=== PATIENT | female | born 1970 | race Caucasian/White ===

== ENCOUNTER 2025-04-26 18:11 | Inpatient (IN) | payer BC, OTHER ==
[~2025-04-26] VITALS: Ht 162.6 cm; Wt 84.1 kg
[~2025-04-26 18:11] MED LIST: DIAZ-351 PO
--- NOTE | 2025-04-26 18:24 | ELECTROCARDIOGRAPH REPORT ---
[facility] Test Date: 2025-04-26 Test Time: 18:16:04 Pat Name: MANUEL KONG Department: EMERGENCY ROOM Patient ID: [id number] Room: Gender: F Apartment Leasing Agent: DERIK : 1970 Requested By: MONTY KEATING Order Number: [id number] Reading MD: Dr. Monty Keating Measurements Intervals [place] Rate: 79 P: 70 CO: 178 QRS: 26 QRSD: 90 T: 58 QT: 438 QTc: 503 Interpretive Statements Sinus rhythm Borderline prolonged QT interval Electronically Signed On 04-26-2025 18:36:[address] Monty Keating Please click the below link to view image of tracing.
--- NOTE | 2025-04-26 18:49 | RADIOLOGY REPORT ---
CHEST RADIOGRAPH Indication: CP Technique: Single frontal view of the chest was obtained COMPARISON: None FINDINGS: Lines and Tubes: None Lungs: Clear Pleura: No effusion. No pneumothorax. Cardiomediastinal contours: Unremarkable Bones: Unremarkable IMPRESSION: 1. No acute disease.
[2025-04-26 18:53] LABS: MEAN PLATELET VOLUME 8.9 FL (7.4-10.4); RED CELL DISTRIBUTION WIDTH 13.9 % (11.5-14.5)
[2025-04-26 19:10] LABS: CREATININE 0.67 MG/DL (0.40-0.90); TOTAL CARBON DIOXIDE 30.6 MMOL/L (24-32); eCRCL 82 ML/MIN; eGFR > 90 ML/MIN
[2025-04-26 19:16] LABS: ETHANOL < 10 MG/DL (<10); PRO BRAIN NATRIURETIC PEPTIDE 176 PG/ML (0-125)
--- NOTE | 2025-04-26 21:05 | Physician Documentation ---
History of Present Illness ~ Chief Complaint: Chest Pain Stated Complaint: CP Time Seen by MD: 20:26 OK to notify your PCP?: Yes Primary Medical Doctor: SCALES Source: patient, RN/MD, RN notes reviewed, old records Exam Limitations: no limitations HPI This pleasant female has a diabetic. She has been having exertional dyspnea now for four months. She has been losing weight but she has been trying to lose weight. [place] recent [place] But for four months she has been having some palpitations some shortness of breath some generalized fatigue but in the last three weeks it has gotten dramatically worsened. She has a cough she feels dizzy at times she has pains substernal but they seemed to be short lasting happening for sec but does trigger symptoms she has been having increasing palpitations increasing pains profound dyspnea on exertion going to the bathroom now she becomes winded. She just started seeing Dr. Dale mostly she has a three day monitor, echocardiogram, EKG which was said to be abnormal a bundle branch block of sorts, a stress test Lexiscan and was then told based on that she is going to need additional studies including another ultrasound. I asked if hi was this study it did not sound familiar. She denies any leg swelling. Her glucose levels have been well controlled. She is now here for evaluation and care. Medication Reconciliation Allergies: Coded Allergies: No Known Allergies (Unverified , 04/26/25) Scheduled PRN Diazepam (Diazepam), 5-10 MG PO Q6H PRN PRN for pain Past Medical History Past Medical History: Angina, Kidney Stones Past Surgical History: noncontributory Smoking Status: Current every day smoker Alcohol Use: None Drug Use: none Review of Systems All Other Systems at this time: Reviewed and Negative Physical Exam Vital Signs: RN Vital Signs have been reviewed: Yes, Temperature: 97.6, Source: Temporal, Heart Rate: 77, Respiratory Rate: 16, BP: 133/95, Pulse Oximetry: 97, Weight: 84.100 Oxygen Flow Rate: 0 Physical Exam General: The patient is well developed, well nourished, nontoxic appearing and is in no acute distress. Skin: Bright, warm and dry with no rashes. HEENT: Head was normocephalic and atraumatic. Eyes - pupils equal, round, reactive to light and accommodation. Extraocular movements were intact. Conjunctivae were nonicteric. The mouth and oropharynx were clear with moist mucous membranes. Neck: Supple and nontender. There was no jugular venous distention, lymphadenopathy, thyromegaly or masses. Chest: Clear to auscultation bilaterally without wheezes, rales or rhonchi. No accessory muscle use. No dullness to percussion. Heart: Rate regular and rhythmic. S1, S2. No murmurs. Palpation of the chest wall was normal. No rubs or thrills. Abdomen: Soft, nontender and nondistended. Positive bowel sounds. No guarding or rebound. No hepatosplenomegaly or palpable masses. Extremities: No cyanosis, clubbing or edema. The patient moves all extremities. Pulses were equal and symmetric. Neurologic: Motor sensory grossly intact Psychologic: The patient was oriented to person, place and time. The patient demonstrated appropriate judgement and insight. Progress Progress Note [id number] discussed the case with the hospitalist who kindly agreed to admit the patient for further workup and care possible repeat echocardiogram Results/Orders Reviewed/noted all lab results: Yes Results/Orders Orders - JONATAN KEATING MD Chest,Single View (04/26/25 18:22) Monitor (04/26/25 18:22) Saline Lock (04/26/25 18:22) Oxygen (04/26/25 18:22) Electrocardiogram (04/26/25 18:22) Drug Screen, Urine (04/26/25 18:36) Cta Chest Pe (04/26/25 21:40) Page Hospitalist (04/26/25 22:43) Fill Out Med Reconciliation (04/26/25 22:43) Completed Orders - JONATAN KEATING MD Chest,Single View (04/26/25 18:22) Cbc/Diff (04/26/25 18:22) BMP (04/26/25 18:22) PBNP (04/26/25 18:22) Electrocardiogram (04/26/25 18:22) Hs Troponin I W Calculations (04/26/25 18:22) Hs Troponin I W Calculations (04/26/25 20:22) Hs Troponin I W Calculations (04/26/25 21:22) CMP (04/26/25 18:22) Ethanol (04/26/25 18:36) MG (04/26/25 18:36) D-Dimer (04/26/25 21:21) Pt Inr (04/26/25 21:21) PTT (04/26/25 21:21) Aspirin 81mg Chew Tablet (Aspirin 81mg C (04/26/25 21:25) Cta Chest Pe (04/26/25 21:40) Iohexol 350mg/Ml 100ml (Omnipaque 350mg/ (04/26/25 21:25) Medications Received in ER Medications (Trade) Dose Ordered Sig/Dinah Route PRN Reason Start Time Stop Time Status Last Admin Dose Admin (aspirin 81MG chew tablet) 324 mg ONCE ONCE PO 04/26/25 21:25 04/26/25 21:26 DC 04/26/25 22:09 324 MG Vital Signs 04/26/25 04/26/25 04/26/25 04/26/25 18:18 19:17 19:20 21:39 Temp 97.6 Pulse 76 77 70 Resp 16 16 16 16 B/P (MAP) 151/80 133/95 (108) 130/86 (101) Pulse Ox 98 97 98 O2 Flow Rate 0 0 Laboratory Tests Test 04/26/25 18:38 04/26/25 20:21 04/26/25 21:24 White Blood Count 6.3 Red Blood Count 4.45 Hemoglobin 13.4 Hematocrit 38.5 Mean Corpuscular Volume 86.4 Mean Corpuscular Hemoglobin 30.0 Mean Corpuscular Hemoglobin Concent 34.7 Red Cell Distribution Width 13.9 Platelet Count 185 Mean Platelet Volume 8.9 Neutrophils (%) (Auto) 59.2 Lymphocytes (%) (Auto) 31.5 Monocytes (%) (Auto) 7.8 Eosinophils (%) (Auto) 0.8 Basophils (%) (Auto) 0.7 Neutrophils # (Auto) 3.7 Lymphocytes # (Auto) 2.0 Monocytes # (Auto) 0.5 Eosinophils # (Auto) 0.1 Basophils # (Auto) 0.0 CBC Comment Sodium Level 139 Potassium Level 3.6 Chloride Level 106 Carbon Dioxide Level 30.6 Anion Gap 2 L Blood Urea Nitrogen 12 Creatinine 0.67 Estimated GFR/1.73 m2 > 90 BUN/Creatinine Ratio 17.9 Glucose Level 154 H Calcium Level 8.1 L Magnesium Level 2.2 Total Bilirubin 0.4 Aspartate Amino Transf (AST/SGOT) 58 H Alanine Aminotransferase (ALT/SGPT) 86 H Alkaline Phosphatase 56 Troponin I High Sensitivity 4 4 5 Pro-B-Type Natriuretic Peptide 176 H Total Protein 6.9 Albumin 3.6 Globulin 3.3 Albumin/Globulin Ratio 1.1 Chemistry Comments Ethyl Alcohol Level < 10 Troponin I High Sens Percent Delta 0 25 Troponin I Hi Sens Absolute Change 0 1 Prothrombin Time 10.7 INR International Normalized Ratio 1.0 Activated Partial Thromboplast Time 30 D-Dimer 0.37 D-Dimer Comment Coagulation Comments Re-Evaluation Re-Evaluation : Re-Evaluation: Unchanged Progress Patient was seen and examined. Patient is given reassurance. Patient's history is quite concerning for cardiac etiology possible heart failure as well. The patient has been having vague cardiac symptoms dyspnea on exertion pulmonary embolism is quite concerning as well as cardiac etiologies. Patient has had a partial workup with stress test echocardiograms Holter monitors but was told she had some abnormal findings requiring additional studies. She is unaware the findings and unable to reach her boatswains mate on the holiday weekend. Patient was sent to the CAT scan to rule out pulmonary embolism otherwise unstable angina is the other possibility for her diagnosis. Anxiety palpitations arrhythmias are all possibilities. Initial laboratory work shows a normal CBC without anemia or leukocytosis making infectious etiologies highly unlikely. Chemistry is also within normal limits calcium is borderline low at 8.1. Negative troponins proBNP one hundred seventy-six. Tox screen negative D-dimer pending. EKG was obtained did not appreciate any heart strain. Continuous bus monitor interpretation shows normal sinus rhythm heart rate 70s, no ectopy, normal, my interpretation. Pulse oximetry monitor interpretation shows normal oxygenation 97% room air, normal, my interpretation. EKG/XRAY/CT/US/VASC/MRI EKG : Intepreting Monitor?: Yes Additional Comment [facility] Test Date: 2025-04-26 Test Time: 18:16:04 Pat Name: MANUEL KONG Department: EMERGENCY ROOM Patient ID: [id number] Room: Gender: F Curatorial Assistant: DERIK : 1970 Requested By: JONATAN KEATING Order Number: [id number] Reading MD: Dr. Jonatan Keating Measurements Intervals [place] Rate: 79 P: 70 MD: 178 QRS: 26 QRSD: 90 T: 58 QT: 438 QTc: 503 Interpretive Statements Sinus rhythm Borderline prolonged QT interval Electronically Signed On 04-26-2025 18:36:[address] Jonatan Keating Please click the below link to view image of tracing. Chest X-Ray : Interpreted By: self Views: 1 VIEW Additional Comments CHEST RADIOGRAPH Indication: CP Technique: Single frontal view of the chest was obtained COMPARISON: None FINDINGS: Lines and Tubes: None Lungs: Clear Pleura: No effusion. No pneumothorax. Cardiomediastinal contours: Unremarkable Bones: Unremarkable IMPRESSION: 1. No acute disease. Electronically Signed by:PHILLIP BARAKAT MD Heart Score: Heart Score Response (Comments) Value History Moderate Suspicious 1 EKG Repolarization Disturb 1 Age 45-64 1 Risk Factors 1 or 2 risk factors 1 Troponin Normal limit 0 Total 4 Medical Decision Making Additional information obtaine: old records Findings Patient has concerns are palpitations, pulmonary embolism, unstable angina, Heart Score: 4 Differential Dx:Considerations: Include: angina, aortic dissection, chest wall pain, cholelithiasis, CHF, costochondritis, esophageal reflux/spasm, gastritis, herpes zoster, myocardial infarction, pericarditis, pleuritis, pancreatitis, pneumonia, pneumothorax, pulmonary embolus, other Departure Disposition: 09 ADMITTED INPATIENT Admission Level of Care: PCU with Tele Impression: Primary Impression: Dyspnea on exertion Additional Impressions: Chest pain at rest Palpitations Unstable angina Condition: Guarded Referrals: NO PRIMARY CARE PROVIDER (PCP) Education Educated: Patient, Family Educated regarding: diagnosis, treatment, need for follow up Signature Scribe Signature: x Attestation: The note accurately reflects work and decisions made by me.Jonatan Keating MD 04/26/25 21:06 JONATAN KEATING MD Apr 26, 2025 21:05
[2025-04-26 21:43] LABS: APTT 30 SECONDS (22-32); INR 1.0 INR
--- NOTE | 2025-04-26 22:03 | RADIOLOGY REPORT ---
COMPUTERIZED TOMOGRAPHIC ANGIOGRAPHY OF THE CHEST WITH INTRAVENOUS CONTRAST REASON FOR EXAM: Chest pain COMPARISON: DI CHEST,SINGLE VIEW on DOS: 04/26/25 TECHNIQUE: The exam was performed on a multidetector spiral scanner. Spiral images were acquired from the thoracic inlet through the adrenal glands, during the bolus intravenous administration of contrast. Multiplanar maximum intensity projection (MIP) images were provided. Radiation optimization: All CT scans at this facility use at least one of these dose optimization techniques: Automated exposure control mA and/or kV adjustment per patient size (includes targeted exams where dose is matched to clinical indication) or iterative reconstruction. CONTRAST ADMINISTERED: 100 mL omnipaque 350 intravenously. RADIATION DOSE: CTDI: 23 mGy DLP: 788 mGy-cm FINDINGS: There is minimal dependent atelectasis in bilateral lower lobes. There is no bronchiectasis or honeycombing. There is no significant pulmonary nodule or mass. There is no pleural effusion. There is no pneumothorax. The heart is at the upper limits of normal for size. There is no pericardial effusion. There is no pulmonary arterial filling defect as far as the subsegmental level to suggest pulmonary embolism. There is no thoracic aortic aneurysm. No pathologic lymphadenopathy is identified by size criteria. The visualized thyroid gland is unremarkable. No acute osseous abnormality is identified. IMPRESSION: No evidence of pulmonary embolism as far as the subsegmental level. No thoracic aortic aneurysm. No significant cardiopulmonary abnormality.
[2025-04-26] MEDS ORDERED: magnesium sulf-water 2g/50mL 50 ML IV PRN (23:45)
[2025-04-26] MEDS ORDERED: magnesium hydroxide 30ml (MOM) UD suspension PO PRN (23:45)
[2025-04-26] MEDS ORDERED: ondansetron/PF 4mg/2ml inj IV PRN (23:45)
[2025-04-26] MEDS ORDERED: magnesium Cl slow-release 64mg tablet PO PRN (23:45)
[2025-04-26] MEDS ORDERED: potassium Cl 20 mEq SR tablet PO PRN (23:45)
[2025-04-26] MEDS ORDERED: magnesium sulf-water 4G/100mL 100 ML IV PRN (23:45)
[2025-04-26] MEDS ORDERED: potassium Cl 40MEQ/1/2NS 520ml 520 ML IV PRN (23:45)
[2025-04-26] MEDS ORDERED: mag hydrox/Alum hydrox/simeth 30ml oral suspension PO PRN (23:45)
[2025-04-26] MEDS ORDERED: metoclopramide 5 mg/ml inj IV PRN (23:45)
[2025-04-27] VITALS (9 sets, daily range): BP systolic 132–154; BP diastolic 79–91; PULSE 66–83; RESP 10–21; TEMP 97.1–98.2; O2SAT 96–99
[2025-04-27] MEDS: PERFLUTREN PROTEIN-A MICROSPHR (Optison) 0.22 MG/ML 3ML VIAL IV ONE (00:05)
--- NOTE | 2025-04-27 00:11 | HISTORY AND PHYSICAL-Residence ---
History & Physical Providers to CC Resident Creating Document: MINI WATT, JESS ~ History of Present Illness Primary Medical Doctor: SCALES Reason for Admit\Complaint: acute on chronic SOB w/ chest discomfort, to rule out ACS History of Present Illness A 54 years old female with the PMH of PVC, T1DM, Hypertension, on HRT estrogen patch, RA and OA with multiple osteopathic surgeries, s/p , CISCO+BSO, kidney stones with family history of CAD [place] and CVA, past history of substance use (Tobacco, EtOH) presented to the ER with the concern for her progressive SOB and chest discomfort over 3 weeks. Pt's materials clerk is Dr Pendleton and PCP from [place]. She started noticing the intermittent abnormal skipping heart beat over her chest feeling along with SOB/MACEDO, and coughing since last 4 months which she attributed to her PVC uncontrolled for which she started seeing Dr Pendleton to control with meds. She experienced episodic similar symptoms back again in between for which she underwent the [place] Evelia scan, Echocardiogram, and Holter monitoring at [address] Pendleton's office, which results were not informed to her yet. She endorsed that her worsening similar symptoms reappeared 3 weeks back after those cardiology workup with progressive central chest pressure which was tender to touch, sharp and pin point feeling, and radiated to her inner left arm and back, associated with the nausea occasionally and SOB and MACEDO, lethargy without having any coughing this time made her concern for heart attack and come to the ER today. She denied for any preceding coryzal symptoms, hx of fall and injury/ trauma to the chest, any recent strenous exercises, and travel long distance hx. She has pretty active lifestyle and never diagnosed with VTE and PE, Cancer and its treatment before. She stated that her BP was controlled around 130s/80 mmHg with meds. She is currently on the HRT estrogen alone patch to prevent her post menopausal symptoms. She used to smoke some cigarettes in her 20s. Moderately consuming the small amount of EtOH once in a blue carrizales. Denied for any illicit drugs use including Coccaine, meth, marijuana etc.. Allergies: Coded Allergies: No Known Allergies (Unverified , 04/26/25) Home Medications Home Medications Active Diazepam 5 Mg Tablet 5-10 Mg PO Q6H PRN PRN Past Medical History Past Medical History PVC, T1DM, Hypertension, on HRT estrogen patch, RA and OA, kidney stones with family history of CAD [place] and CVA, past history of substance use (Tobacco, EtOH) Her father and grandmom from [place] at the age of 70s, and other family members had CVA. Past Surgical History Surgical History Comment s/p , CISCO+BSO Past Social History Social History Comment She used to smoke some cigarettes in her 20s. Moderately consuming the small amount of EtOH once in a blue carrizales. Denied for any illicit drugs use including Coccaine, meth, marijuana etc. she is currently living with her . Smoking: Non-Smoker Alcohol Use: None Drug Use: None ROS All Other Systems: Reviewed and Negative ROS Constitutional: No fever, chills, dizziness, weakness, weight gain or loss Eyes: No pain, erythema, discharge, blurring of vision ENT: No sore throat, epistaxis, tinnitus Cardiovascular: No syncope, lower extremity edema, paroxysmal nocturnal dyspnea Respiratory: No cough, hemoptysis Gastrointestinal: Normal appetite. No nausea, vomiting, diarrhea, constipation, hematemesis, abdominal pain, bloating, melena or fresh blood Genitourinary: No frequency, urgency, nocturia, hematuria or dysuria Musculoskeletal: No arthralgias or myalgias Integumentary: No change in skin, hair, nails. No swelling, bruising, abrasions Neurologic: No headache, neck pain, numbness or tingling of the extremities, weakness Psychiatric: No delusions, depression, loss of interest in normal activity or change in sleep pattern, hallucinations, suicidal ideations Endocrine: No fatigue, weakness, polydipsia, polyuria, change in appetite, heat or cold intolerance, sweating, dry skin Hematological: No bleeding, petechiae, bruising Allergies: No asthma or urticaria Exam Vitals: Vital Signs Date Time Temp Pulse Resp B/P (MAP) Pulse Ox O2 Delivery O2 Flow Rate FiO2 04/26/25 21:39 70 16 130/86 (101) 98 0 04/26/25 18:18 97.6 General: General: Well alert, well oriented, not confused, not agitated, not in acute distress, well cooperated during the physical. HEENT: HEENT: Conjunctive are pink, sclerae clear, no icterus, pupil is equal in both sides, reactive to light, no ear discharge, no pharyngeal erythema or an edema, mouth and lips are slightly dry. Neck: Neck: Supple, no JVD, no lymphadenopathy and thyromegaly. Chest: Lungs:Equal air entry on both lungs, no additional sounds Cardiovascular: Heart: S1-S2 regular sinus rhythm and, regular rate, no gallops, no rubs, no murmurs Chest pain: slight tenderness over the central chest on compression. Abdomen: Abdomen: No visible peristalsis, Bowel sounds present on auscultation, soft, nontender, no guarding, no rigidity Extremities: Extremities: No obvious deformities, no pitting edema bilaterally, capillary refill intact, able to wiggle toes both sides, peripheral pulsations are intact on both sides Central Nervous System: CARD RUNNER: No focal neurological deficits, no motor and sensory weakness in all 4 extremities, could move all 4 extremities Musculoskeletal: Musculoskeletal: No joint swelling, deformities, inflammations, and no scoliosis and back tenderness Skin: Skin: No active skin lesions and rashes Diagnostic Data Last Recorded Lab Results: 04/27/25 0306 04/27/25 0306 Diagnostic Data: Laboratory Tests Test 04/26/25 21:24 Prothrombin Time 10.7 SECONDS (9.0-12.0) INR International Normalized Ratio 1.0 INR Activated Partial Thromboplast Time 30 SECONDS (22-32) D-Dimer 0.37 MG/L FEU (0-0.50) D-Dimer Comment Coagulation Comments Counseling Services Smoking & Tobacco Cessation: 3-10 Minutes Advance Care Planning Advanced Care plannin - 30 Minutes Additional Plan A 54 years old female with the PMH of PVC, T1DM, Hypertension, on HRT estrogen patch, RA and OA with multiple osteopathic surgeries, s/p , CISCO+BSO, kidney stones with family history of CAD [place] and CVA, past history of substance use (Tobacco, EtOH) presented to the ER with the concern for her progressive SOB and chest discomfort over 3 weeks. # Non-specific Chest pain, to exclude ACS # Excluded out Acute PE w/ Negative D Dimer and CTA chest # Hx of PVC -Given history of PVC, pending cardiac workup at the Dr Pendleton's office, with presenting symptoms of SOB/ MACEDO, possible non-cardiac chest pain with background family hx for CVA and [place], currently on HRT and T1DM status, pt was admitted to the PCU for continuous library monitor and further investigation including pending workup results from Dr Pendleton's office. -Based on pt's CP which is less likely from cardiac origin, Musculoskeletal origin would be highly possible with the slightly tenderness on chest compression on exam Vs Possible RA related Pericarditis causing CP although no shorten TN and delta sloughing wave of QRS with widespread ST elevation in concavity was seen on her EKG except for the slightly prolonged QT interval. Serial Trops were negative 4-4-5. -No hx of chronic GI blood loss, and no labs showed Anemia at that moment. She is eating well balanced nutritions. -She was treated with methotrexate for her RA for total three years, which was stopped eight months ago. Chest imaging dose not show any pulmonary parenchyma pathology. -CTA chest IMPRESSION: No evidence of pulmonary embolism as far as the subsegmental level. No thoracic aortic aneurysm. No significant cardiopulmonary abnormality. -CXR showed No evidence of pulmonary embolism as far as the subsegmental level. No thoracic aortic aneurysm. No significant cardiopulmonary abnormality. -elevated proBNP with no acute heart failure exacerbation and no kidney issue Plan: -Following up with Dr Pendleton's office Echo, [place] Evelia scan and Holter monitoring reading -to inform Dr Pendleton -SL NGL prn -PO Protonix 40 mg Daily -continue telemetry monitoring -will consider for NSAIDs after ruled out ACS -daily CBC monitoring for anemia, CMP for electrolytes imbalances -Pending drug screen -reassure the pt and discuss the details plan, control her anxiety -Pending Med Rec -Follow up with PCP for detail discussion with HRT and VTE and Cardiovascular risk -Pending Lipid panel to calculate ASCVD risk in the presence of T1DM # T1DM # Hypertension -monitor blood sugar, HGB A1c 6.9 -monitor insulin pump functions -control blood pressure -med rec pending # Past Hx of substance use (Tobacco and EtOH) -strongly encouraged to quit or cut down, linked the risks and consequences from the substance use. # RA # Multiple osteopathtic issues -follow up with hooker laster and orthopedic in outpatient setting -continue prescribed medications to control RA, med rec pending -ESR 14 # serum hypocalcemia -serum calcium show 8.1, corrected calcium show 8.4 which is low -ordered ionized calcium level -no active clinical symptoms at the moment CODE STATUS: Full code DVT prophylaxis: SC heparin Analgesia/sedation: IV morphine as needed Lines/tubes: PIV GI prophylaxis: Protonix Nutrition: Heart healthy Prognosis: Guarded Disposition: Continue medical management, follow up with the Dr. Pendleton's office, Dr. Pendleton's consultation, PT eval and DC plan. Resident MD attestation: Patient was seen, examined and discussed with attending MD, Dr. Milagro WATT MD Internal Medicine Resident, PGY3 [facility] Date of Service: Apr 26, 2025 Billing Provider: LONNIE CARABALLO MD Addendum Attestation I agree with the residents assessment and plan as below: 54 year old female admitted with SOB and chest pain Plan: cardiology consult prn morphine for pain trend troponin PT and OT eval continue insulin pump restart home BP meds CCT 51 min using HIPPA compliant A/V technology MINI WATT, RES Apr 27, 2025 00:11 LONNIE CARABALLO MD Apr 27, 2025 04:54
[2025-04-27] MEDS: pantoprazole 40mg Tablet.DR PO SCH (02:01)
[2025-04-27 04:00] LABS: MEAN PLATELET VOLUME 9.1 FL (7.4-10.4); RED CELL DISTRIBUTION WIDTH 14.1 % (11.5-14.5)
[2025-04-27 04:16] LABS: CHOL/HDL RATIO 2.3 (0.00-4.99); CREATININE 0.60 MG/DL (0.40-0.90); LDL CHOLESTEROL 32 MG/DL (50-100); TOTAL CARBON DIOXIDE 31.1 MMOL/L (24-32); eCRCL 91 ML/MIN; eGFR > 90 ML/MIN
[2025-04-27 04:53] LABS: URINE AMPHETAMINE SCREEN NEGATIVE (Neg); URINE BARBITUATE SCREEN NEGATIVE (Neg); URINE BENZODIAZEPINES SCREEN NEGATIVE (Neg); URINE CANNABINOID SCREEN NEGATIVE (Neg); URINE COCAINE SCREEN NEGATIVE (Neg); URINE METHADONE SCREEN NEGATIVE (Neg); URINE OPIATE SCREEN NEGATIVE (Neg); URINE PHENCYCLIDINE SCREEN NEGATIVE (Neg)
[2025-04-27 05:02] LABS: LEUKOCYTE ESTERASE ,URINE NEGATIVE (Neg); NITRITES, URINE NEGATIVE (Neg); OCCULT BLOOD,URINE NEGATIVE (Neg)
[2025-04-27 05:10] LABS: UA COLLECTION TYPE OTHER
[2025-04-27] MEDS: heparin, porcine 5000 units/ml vial SQ SCH (07:52)
[2025-04-27] MEDS: potassium Cl 20 mEq SR tablet PO PRN (07:53)
[2025-04-27] MEDS: docusate sod 100mg capsule PO PRN (07:54)
[2025-04-27] MEDS: K and/or MAG REPLACEMENT MC SCH (08:00)
[2025-04-27] MEDS ORDERED: NEBI10TA13 PO (10:22)
[2025-04-27] MEDS ORDERED: ROSU40TA89 PO (10:22)
[2025-04-27] MEDS ORDERED: MET0.75G TOP (10:22)
[2025-04-27] MEDS ORDERED: CELE-127 PO (10:22)
[2025-04-27] MEDS ORDERED: PREG100C56 PO (10:22)
[2025-04-27] MEDS ORDERED: TIRZ10PE SQ (10:22)
[2025-04-27] MEDS ORDERED: [UNRECOGNIZED DRUG - CODE] TOP (10:22)
[2025-04-27] MEDS ORDERED: OLME-31 PO (10:22)
[2025-04-27] MEDS ORDERED: LEVO100T9 PO (10:22)
[2025-04-27] MEDS ORDERED: HYDR200T73 PO (10:22)
--- NOTE | 2025-04-27 14:35 | PROGRESS NOTE ---
Daily Progress Note Providers to CC ~ Antibiotic Timeout Antibiotic Ordered?: No Subjective The patient complains of experiencing chest pain and dyspnea with exertion which has been occurring for four months. I did send a message to her assistant real estate manager's Dr. Vincent however he is not in town and it is a Tuesday that is I am unable to obtain the results of the various tests done in the outpatient setting including the Holter monitor results as well as the Lexiscan stress test and echocardiogram results. Currently on telemetry the patient has occasionally a first-degree heart block and frequent PVCs otherwise unremarkable and in his sinus rhythm and serial troponins were negative. Objective Vital Signs Date Time Temp Pulse Resp B/P (MAP) Pulse Ox O2 Delivery O2 Flow Rate FiO2 04/27/25 11:00 97.8 75 16 147/88 (107) 98 Room Air 04/27/25 06:43 0.0 Result Diagram: 04/27/25 0306 04/27/25 0306 Gen. No acute distress alert and oriented 4 Lungs clear to ascultation bilaterally, no wheezes rales or rhonchi appreciated Heart normal sinus rhythm no murmurs rubs or clicks noted Abdomen soft nontender bowel sounds are normoactive Lower extremities no clubbing cyanosis, nor edema appreciated bilaterally Coagulation Studies Laboratory Tests Test 04/26/25 21:24 Prothrombin Time 10.7 SECONDS (9.0-12.0) INR International Normalized Ratio 1.0 INR Activated Partial Thromboplast Time 30 SECONDS (22-32) D-Dimer 0.37 MG/L FEU (0-0.50) D-Dimer Comment Coagulation Comments Problem\Assessment\Plan Problems/Diagnosis: (1) Dyspnea on exertion # Non-specific Chest pain, to exclude ACS # Excluded out Acute PE w/ Negative D Dimer and CTA chest # Hx of PVC Unable to obtain outpatient results of echo/Holter monitor and Lexiscan stress test from Dr. Pendleton since he is out of town nor his office as this is a Tuesday Serial troponins were negative Continue monitor on tele- frequent PVCs in his first-degree heart block is noted # T1DM # Hypertension -monitor blood sugar, HGB A1c 6.9 -monitor insulin pump functions -control blood pressure - continue olmesartan/hydrochlorothiazide and Nebivolol # RA # Multiple osteopathtic issues Continue hydroxychloroquine Continue Celebrex Continue pregabalin # serum hypocalcemia -serum calcium show 8.1, corrected calcium show 8.4 which is low -ionized calcium level is 1.17 within normal limits (1.10-1.30 are normal limits). #DVT prophylaxis SQ heparin SCDs Date of Service: Apr 27, 2025 Billing Provider: STEPHANE VINSON DO Common Visit Codes: [id number] INP/OBS CARE(HIGH) STEPHANE VINSON DO Apr 27, 2025 14:35
[2025-04-28 02:00] VITALS: BP 126/83; PULSE 72; RESP 14; TEMP 97.1; O2SAT 97
[2025-04-28 06:29] LABS: MEAN PLATELET VOLUME 9.2 FL (7.4-10.4); RED CELL DISTRIBUTION WIDTH 14.0 % (11.5-14.5)
[2025-04-28 06:53] LABS: CREATININE 0.50 MG/DL (0.40-0.90); TOTAL CARBON DIOXIDE 26.4 MMOL/L (24-32); eCRCL 110 ML/MIN; eGFR > 90 ML/MIN
[2025-04-28 07:00] VITALS: BP 124/79; PULSE 80; RESP 18; TEMP 98.3; O2SAT 97
[2025-04-28] MEDS ORDERED: ESTRADIOL 0.05 MG TD SCH (08:00)
[2025-04-28] MEDS ORDERED: Estradiol 0.025mg/day patch (1 per week) TD SCH (08:00)
[2025-04-28] MEDS: levoTHYROXINE 100mcg tablet PO SCH (08:18)
[2025-04-28 10:00] VITALS: BP 142/78; PULSE 82; RESP 14; TEMP 97.2; O2SAT 97
[2025-04-28 10:43] VITALS: BP_SYST 103; BP_SYST 137; BP_SYST 142; BP_DIAS 74; BP_DIAS 78; BP_DIAS 87; PULSE 102; PULSE 68; PULSE 74
--- NOTE | 2025-04-28 16:46 | DISCHARGE SUMMARY ---
Discharge Summary Providers to CC ~ Discharge Summary Admission Diagnosis: SOB w/ central chest pain Hospital Course DATE OF ADMISSION: 04/26/2025 DATE OF DISCHARGE: 04/28/2025 Discharge Diagnosis\\Comment: Nonspecific chest pain likely secondary to PVCs acute coronary syndrome was evaluated, type 1 diabetes mellitus, hypertension, rheumatoid arthritis, hypocalcemia Operations\\Procedures: None Consultants: None Complications: None Condition on DC: Stable Continued Medications: Celecoxib (Celecoxib) 200 Mg Capsule 1 TAB PO BID Estradiol (Monica) 0.075 Mg/24 Hour Patch.tdsw 0.075 MG TOP Q3D Hydroxychloroquine Sulfate* (Plaquenil*) 200 Mg Tablet 1 TAB PO BID Levothyroxine Sodium (Levothyroxine Sodium) 100 Mcg Tablet 1 TAB PO QAM Metronidazole Top. Cream* (Metrogel 0.75% Topical Cream*) 45 Gm Tube 1 APPLIC TOP BID PRN for allergies Nebivolol HCl (Nebivolol HCl) 10 Mg Tablet 1 TAB PO HS Olmesartan/Hydrochlorothiazide (Olmesartan-Hctz 40-25 mg Tab) 40 Mg-25 Mg Tablet 1 TAB PO DAILY Pregabalin (Pregabalin) 100 Mg Capsule 1 TAB PO DAILY PRN for breakthrough pain (4-10) MDD 1 Rosuvastatin Calcium (Rosuvastatin Calcium) 40 Mg Tablet 1 TAB PO DAILY Tirzepatide (Mounjaro) 10 Mg/0.5 Ml Pen.injctr 10 MG SQ Q7D Discharge Summary: The patient is admitted by resident physician MINI Jara , under the supervision of LONNIE Matthews MD with the following HPI:"A 54 years old female with the PMH of PVC, T1DM, Hypertension, on HRT estrogen patch, RA and OA with multiple osteopathic surgeries, s/p , CISCO+BSO, kidney stones with family history of CAD AR and CVA, past history of substance use (Tobacco, EtOH) presented to the ER with the concern for her progressive SOB and chest discomfort over 3 weeks. Pt's waste disposal leakage tester is Dr Pendleton and PCP from [place]. She started noticing the intermittent abnormal skipping heart beat over her chest feeling along with SOB/MACEDO, and coughing since last 4 months which she attributed to her PVC uncontrolled for which she started seeing Dr Pendleton to control with meds. She experienced episodic similar symptoms back again in between for which she underwent the NM Evelia scan, Echocardiogram, and Holter monitoring at [address] Pendleton's office, which results were not informed to her yet. She endorsed that her worsening similar symptoms reappeared 3 weeks back after those cardiology workup with progressive central chest pressure which was tender to touch, sharp and pin point feeling, and radiated to her inner left arm and back, associated with the nausea occasionally and SOB and MACEDO, lethargy without having any coughing this time made her concern for heart attack and come to the ER today. She denied for any preceding coryzal symptoms, hx of fall and injury/ trauma to the chest, any recent strenous exercises, and travel long distance hx. She has pretty active lifestyle and never diagnosed with VTE and PE, Cancer and its treatment before. She stated that her BP was controlled around 130s/80 mmHg with meds. She is currently on the HRT estrogen alone patch to prevent her post menopausal symptoms. She used to smoke some cigarettes in her 20s. Moderately consuming the small amount of EtOH once in a blue carrizales. Denied for any illicit drugs use including Coccaine, meth, marijuana etc.." The patient has a CTA of the chest was negative for PE, the patient is serum troponins were negative. Orthostatic vital signs were obtained and the patient actually had an increase of 33 points in his systolic blood pressure from supine to sitting and an additional five points increase from sitting to standing the patient is asymptomatic she does get dizzy when she does ambulate she states and gets the chest pain and shortness of breath. I did send a text to the patient's waste disposal leakage tester's Dr. Pendleton who was out of town. The patient is to follow up with her waste disposal leakage tester's at the soonest appointment to discuss the outpatient test that were obtained including echocardiogram, Lexiscan stress test and Holter monitor. The patient did have intermittent first-degree heart block that was occasional and had infrequent PVCs on telemetry. Monitor The patient is to continue all her home medications clean medications for rheumatoid arthritis hydroxychloroquine and Celebrex as well as her home blood pressure medications of olmesartan and hydrochlorothiazide as well as nebivolol. The patient is blood pressure was under acceptable control for significant part of the hospitalization. The patient has a type 1 diabetic and is on an insulin pump she is controlling her blood sugars well that is the patient continued to manage her diabetes with her pump and adjustments accordingly as the patient is hemoglobin A1c 6.9. Patient has a cholesterol panel obtained and total cholesterol was 89 with a LDL of 32 and HDL of 39 no changes in her cholesterol medicines were made. The patient has mild hypocalcemia which remained stable during hospitalization. Gen. No acute distress alert and oriented 4 Lungs clear to ascultation bilaterally, no wheezes rales or rhonchi appreciated Heart normal sinus rhythm no murmurs rubs or clicks noted Abdomen soft nontender bowel sounds are normoactive Lower extremities no clubbing cyanosis, nor edema appreciated bilaterally. The patient felt ready to be discharged and was medically cleared to be dischar [facility] on 04/28/2025 The patient was seen and evaluated on day of discharge. Time spent on discharge 35 minutes *Problems/Diagnosis: (1) Dyspnea on exertion Status: Acute Total Time Spent on D/C: > 30 Minutes Date of Service: Apr 28, 2025 Billing Provider: STEPHANE VINSON DO Common Visit Codes: [id number]/[id number] DISCH DAY >30min STEPHANE VINSON DO Apr 28, 2025 16:46
[2025-04-29] MEDS ORDERED: ESTRADIOL 0.05 MG TD SCH (09:10)
[2025-04-29] MEDS ORDERED: Estradiol 0.025mg/day patch (1 per week) TD SCH (09:10)
== END 2025-04-28 13:24 | disposition home or self-care (01) | DRG 309 ==
LOC: ER 18:11 → ED HOLD 23:50 → PCU 3S 04-27 03:25
PROVIDERS: ADMIT Internal Medicine; ATTEND Family Medicine
PROC: B32T1ZZ Computerized Tomography (CT Scan) of Left Pulmonary Artery using Low Osmolar Contrast (ICD-10-PCS; principal; 2025-04-26)
PROC: B3201ZZ Computerized Tomography (CT Scan) of Thoracic Aorta using Low Osmolar Contrast (ICD-10-PCS; 2025-04-26)
PROC: B32S1ZZ Computerized Tomography (CT Scan) of Right Pulmonary Artery using Low Osmolar Contrast (ICD-10-PCS; 2025-04-26)
DX: I49.3 Ventricular premature depolarization (principal); I24.9 Acute ischemic heart disease, unspecified; E83.51 Hypocalcemia; E10.9 Type 1 diabetes mellitus without complications; M06.9 Rheumatoid arthritis, unspecified; I10 Essential (primary) hypertension; F17.210 Nicotine dependence, cigarettes, uncomplicated; R94.31 Abnormal electrocardiogram [ECG] [EKG]; I44.0 Atrioventricular block, first degree; Z96.41 Presence of insulin pump (external) (internal); Z79.4 Long term (current) use of insulin; Z82.3 Family history of stroke; Z87.442 Personal history of urinary calculi; Z82.49 Family history of ischemic heart disease and other diseases of the circulatory system
CPT/HCPCS: 36415; 71045; 71275; 80053; 80061; 80305; 80320; 81003; 82330; 82948; 83036; 83735; 83880; 84443; 84484; 85025; 85379; 85610; 85651; 85730; 87081; 93005; 97161; 97530; 99285; A6258; G0378; J1644; Q9967